=== PATIENT | female | born 1995 | race Hispanic/Latino ===

== ENCOUNTER 2022-08-07 23:57 | Emergency (ER) | payer SELFPAY ==
[~2022-08-07] VITALS: Ht 157.5 cm; Wt 88.5 kg
[2022-08-08] MEDS ORDERED: AMOXICILLIN500 MG PO (01:08)
[2022-08-08] MEDS ORDERED: PROVENTIL HFA6.7 GM INH (01:09)
[2022-08-08 01:15] VITALS: BP 120/70
== END 2022-08-08 01:15 | disposition home or self-care (01) ==
LOC: FSED 08-08 00:03
DX: R05.9 Cough, unspecified (principal); J02.9 Acute pharyngitis, unspecified; J45.909 Unspecified asthma, uncomplicated; F32.A Depression, unspecified; F17.290 Nicotine dependence, other tobacco product, uncomplicated
CPT/HCPCS: 83518; 99282